=== PATIENT | female | born 1955 | race Caucasian/White ===

== ENCOUNTER 2024-07-06 08:17 | Outpatient (REF) | payer BC, SELFPAY ==
--- NOTE | ~2024-07-06 | XR_ITS ---
CLINICAL HISTORY: M25.849 - Other specified joint disorders, unspecified hand 3 view right wrist Comparison: None Findings: Bones intact. No dislocations. No significant arthritic change or erosions. Dorsal soft tissue swelling with scattered calcifications. IMPRESSION: 1. No acute osseous abnormality. 2. Dorsal soft tissue swelling with scattered calcifications. This document has been electronically signed by: Jerica Betancur MD on 07/06/2024 18:09:33
--- OUTSIDE RECORDS SUMMARY | 2024-07-06 10:26 | XMS_ITS | Clinical Summary ---
Author Organization [facility] Address [address] [place] [address] Care Team Providers Care Aquarium Tank Attendant Name Role Phone Gaby Ruiz MD Primary Care Provider Allergies No known active allergies Medications Medication [...] age to complete this topic Care Teams Aquarium Tank Attendant Relationship Specialty Start Date End Date Gaby Ruiz MD [address] [place] [address] [phone] PCP - General Internal Medicine 10/29/19
[2024-07-06 13:16] LABS: MANUAL DIFF FLAG NO
[2024-07-06 13:28] LABS: Basophils Percent Auto 0.8 % (0-2); Eosinophils Absolute Auto 0.3 X10*3/uL (0.0-0.4); Eosinophils Percent Auto 5.3 % (0-4); Hematocrit 41.6 % (37.0-47.0); Hemoglobin 14.1 g/dl (12.0-16.0); Imm Gran Abs Auto 0.03 X10*3/uL (0.00-0.03); Imm Gran Pct Auto 0.6 % (0.0-0.4); Lymphocytes Absolute Auto 1.2 X10*3/uL (1.2-4.9); Lymphocytes Percent Auto 23.4 % (20-40); Mean Corpuscular HGB Conc 33.9 g/dl (31.0-35.0); Mean Corpuscular Hemoglobin 32.5 pg (27.0-33.0); Mean Corpuscular Volume 95.9 fL (80.0-98.0); Mean Platelet Volume 9.3 fL (9.4-12.3); Monocytes Absolute Auto 0.6 X10*3/uL (0.1-1.2); Monocytes Percent Auto 10.9 % (2-11); Platelet Count 237 X10*3/uL (160-400); Red Blood Count 4.34 X10*6/uL (4.20-5.50); Red Cell Distribution Width 13.7 % (11.0-16.0); White Blood Count 5.1 X10*3/uL (4.8-10.8)
[2024-07-06 14:01] LABS: Alanine Aminotransferase 57 U/L (0-31); Albumin Level 4.2 g/dL (3.5-5.0); Alkaline Phosphatase 75 U/L (39-117); Anion Gap 9 (12-20); Aspartate Amino Transferase 60 U/L (5-31); Blood Urea Nitrogen 10 mg/dL (9-16); Calcium 9.5 mg/dL (8.4-10.2); Carbon Dioxide 26 mmol/L (22-29); Chloride 108 mmol/L (96-108); Cholesterol 135 mg/dL (<200); Estimated Glomerular Filt Rate > 60; Glucose Fasting 91 mg/dL (60-99); HDL Cholesterol 33 mg/dL (>40); LDL Cholesterol Calculated 74 mg/dL (<100); Sodium 139 mmol/L (135-145); Total Protein 8.2 g/dL (6.5-8.0); Triglycerides 144 mg/dL (<150)
[2024-07-06 14:08] LABS: TSH reflex Free T4 2.59 uIU/mL (0.32-4.0); Vitamin D 25-OH Total 31.3 ng/mL (>30)
== END 2024-07-06 08:18 | disposition home or self-care (01) ==
LOC: HO.HMGCX 08:17
PROVIDERS: PCP Internal Medicine; Visit Provider Internal Medicine
DX: Z00.00 Encounter for general adult medical examination without abnormal findings (principal); M25.841 Other specified joint disorders, right hand; N63.0 Unspecified lump in unspecified breast; R26.89 Other abnormalities of gait and mobility; Z78.0 Asymptomatic menopausal state; Z28.21 Immunization not carried out because of patient refusal
CPT/HCPCS: 36415; 73110; 80053; 80061; 82306; 84443; 85025; 96127

== ENCOUNTER 2024-07-06 08:17 | Outpatient (AMB) | payer BC, SELFPAY ==
--- NOTE | 2024-07-06 08:19 | MHC.PC.OV ---
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 Intake Note: Pt is here today as a New Patient to est care Allergies No Known Allergies Allergy (Unverified 07/06/24 08:24) Medication List - Last Reconciled 07/06/24 by Bel Cook MD cholecalciferol (vitamin D3) 50 mcg PO DAILY Tobacco use date assessed: 07/06/24 Fall risk assessment: No Falls in past year Last assessed Fall Risk: 07/06/24 Dental Screening Dental Screen Date: 07/06/24 Did you have a dental visit in the last 12 months?: Yes Did you have a dental problem in the last 6 months where you did not have access to dental care?: Yes Was dental information given to patient?: Patient has dentist HPI 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 Patient noticed a tender lump on her right breast 2 months ago which has not changed. She denies any change in the nipple. Last mammogram was over 2 years ago at [facility]. Patient reports some difficulty with the balance since her right hip replacement surgery 3 years ago which has been preventing her from regular walking. She denies any weakness or pain in the right lower extremity. Patient complains of the painful swelling on the right wrist for 3 months. 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 1. Little interest or pleasure in doing things: not at all 2. Feeling down, depressed, or hopeless: not at all 3. Trouble falling or staying asleep, or sleeping too much: not at all 4. Feeling tired or having little energy: not at all 5. Poor appetite or overeating: not at all 6. Feeling bad about yourself - or that you are a failure or have let yourself or your family down: not at all 7. Trouble concentrating on things, such as reading the newspaper or watching television: not at all 8. Moving or speaking so slowly that other people could have noticed. Or the opposite - being so fidgety or restless that you have been moving around a lot more than usual: not at all 9. Thoughts that you would be better off or of hurting yourself in some way: not at all Total score: 0 Depression Screening Interpretation: Negative Depression Screening Done: Yes 24385 - PHQ-9 Billing: Yes Source: Developed by Drs. Te Mcclain, Carina Park, Ricki Reyes and colleagues, with an educational willie from [employer]. Thrive Questionnaire Date Thrive assessed: 07/06/24 I am a: Patient What is your living situation today?: I have a steady place to live Within the past 12 months, did the food you bought not last and you didn't have the money to get more?: Never true Within the past 12 months, did you worry whether your food would run out before you got money to buy more?: Never true Do you have trouble paying for medicines?: No Do you have trouble getting transportation to medical appointments?: No Do you have trouble paying your heating and electricity bill?: No Do you have trouble taking care of your child, family member or friend?: No Do you have trouble with day-to-day activities such as bathing, preparing meals, shopping, managing finances, etc.?: No Are you currently unemployed and looking for a job?: No Are you interested in more education?: No THRIVE Score: 0 AUDIT C Alcohol Use Questionnaire (AUDIT-C) 1. How often do you have a drink containing alcohol?: Never Total Score: 0 YURI-7 AMB Questionnaire YURI-7 Date YURI - 7 assessed: 07/06/24 Feeling nervous, anxious, or on edge: 0 = Not at all Not being able to stop or control worryin = Several days Worrying too much about different things: 1 = Several days Trouble relaxin = Not at all Being so restless that it is hard to sit still: 0 = Not at all Becoming easily annoyed or irritable: 0 = Not at all Feeling afraid as if something awful might happen: 0 = Not at all Total YURI-7 score (0-4 normal; 5-9 mild; 10-14 moderate; 15-21 severe): 2 Source: Developed by Drs. Te Mcclain, Carina Park, Ricki Reyes and colleagues, with an educational willie from [employer]. Review of Systems Const All systems reviewed & are unremarkable except as noted in HPI and below Eyes Reports no additional complaints ENT Reports no additional complaints Card Reports no additional complaints Resp Reports no additional complaints GI Reports no additional complaints Reports no additional complaints Musc Reports no additional complaints Skin/Breast Reports system reviewed and no additional complaints, except as documented Physical exam (Primary Care) Vital Signs: Last Vital Signs Temp 98.1 F 07/06/24 08:22 Pulse 77 07/06/24 08:22 Resp 16 07/06/24 08:22 BP 124/80 07/06/24 08:22 Pulse Ox 95 07/06/24 08:22 Oxygen Delivery Method Room Air 07/06/24 08:22 BMI result Body Mass Index 38.5 Tobacco/Smoking Status: Tobacco use Status Tobacco use date assessed 07/06/24 07/06/24 08:27 Patient Tobacco Use Status Never used Tobacco 07/06/24 08:27 e-Cigarette/Vaping Use Never Used 07/06/24 08:27 PHQ-9: PHQ-9 Score PHQ-9: Total score 0 07/06/24 08:27 Depression Screening Interpretation: Negative Thrive Assessment: Date of Thrive Assessment Date Thrive assessed 07/06/24 07/06/24 08:27 Const General: no acute distress HENMT Head: Yes normal to inspection Ears: hearing grossly normal bilaterally Face and sinus: Yes normal facial exam Mouth: Normal oral and palatal mucosa present Eyes General: appearance normal, both eyes and all related structures Neck Neck: Yes no lymphadenopathy and Yes supple Chest Breast/axilla inspection: normal inspection of the breasts and normal inspection of the axillae Breast/axilla palpation: normal palpation of the breasts (Left), normal palpation of the axillae and abnormal palpation of the breast (Right breast at 11:00 density palpable without distinct borders) Resp Effort & Inspection: normal respiratory effort Auscultation: clear to auscultation bilaterally Cardio Rhythm: regular rhythm Heart sounds: S1 normal heart sound present and S2 normal heart sound present GI Inspection: Yes normal to inspection Palpation (GI): Soft to palpation Percussion: Yes normal to percussion Auscultation: normal bowel sounds Neuro Cranial nerves: Yes CN's II-XII intact bilaterally Motor exam (neuro): 5/5 motor strength present throughout Romberg Test: Negative Extrem Other: Right wrist with a full range of motion. there is soft tissue ill-defined swelling 5 by 2 cm on the dorsum of right wrist General: Yes no clubbing, cyanosis or edema Coding Level of Care Code New Pt Prev Care >65yr (46200) Diagnoses Hx of colonoscopy Z98.890 Hx of screening mammography Z92. Cyst of joint of hand M25.849 Postmenopausal Z78.0 Breast lump in upper outer quadrant N63.0 Annual physical exam Z00.00 Additional Codes PHQ-9 - 89675 - PHQ-9 Billing: Yes ([id number]) Assessment & Plan Assessment & Plan (1) Hx of colonoscopy: Comment: 2018 normal, [facility] Code(s): Z98.890 - Other specified postprocedural states Category: Surgical Plan: Patient will obtain the report (2) Hx of screening mammography: Comment: 2021? [facility] Code(s): Z92.89 - Personal history of other medical treatment Category: Medical Plan: Referred for the mammogram (3) Cyst of joint of hand: Comment: Right Code(s): M25.849 - Other specified joint disorders, unspecified hand Category: Medical Plan: Check x-ray of right wrist and referred to a hand surgeon (4) Postmenopausal: Code(s): Z78.0 - Asymptomatic menopausal state Category: Medical Plan: Check DEXA (5) Breast lump in upper outer quadrant: Code(s): N63.0 - Unspecified lump in unspecified breast Category: Medical Plan: OBTAIN MAMMOGRAM (6) Annual physical exam: Comment: pt refuses Pnemovax 06/2024 Code(s): Z00.00 - Encounter for general adult medical examination without abnormal findings Category: Medical Plan: Well-balanced diet regular physical activity decreasing caloric intake and weight loss discussed with the patient. She will have a fasting blood work today Orders: Orders Comprehensive [place]. Panel Fast Today R26.89 - Other abnormalities of gait and mobility, Z00.00 - Encounter for general adult medical examination without abnormal findings Vitamin D 25-OH Total Today R26.89 - Other abnormalities of gait and mobility, Z00.00 - Encounter for general adult medical examination without abnormal findings XR wrist RT 2V Today M25.849 - Other specified joint disorders, unspecified hand XR DEXA axial skeleton Today Z78.0 - Asymptomatic menopausal state Complete Blood Count Auto Diff Today R26.89 - Other abnormalities of gait and mobility, Z00.00 - Encounter for general adult medical examination without abnormal findings Lipid Panel Today R26.89 - Other abnormalities of gait and mobility, Z00.00 - Encounter for general adult medical examination without abnormal findings TSH reflex Free T4 Today R26.89 - Other abnormalities of gait and mobility, Z00.00 - Encounter for general adult medical examination without abnormal findings PT Evaluation and Treatment Today R26.89 - Other abnormalities of gait and mobility MM diagnostic mammo unilat RT Today N63.0 - Unspecified lump in unspecified breast MM screening mammo unilat LT Today Z12.31 - Encounter for screening mammogram for malignant neoplasm of breast US breast RT limited Today N63.0 - Unspecified lump in unspecified breast Referrals Hand Surgery Referral M25.849 - Other specified joint disorders, unspecified hand
[2024-07-06 08:22] VITALS: BP 124/80; PULSE 77; RESP 16; TEMP 36.7; O2SAT 95; BMI 38.5
--- OUTSIDE RECORDS SUMMARY | 2024-07-06 08:22 | XMS_ITS ---
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 * Medical History:? Objective: * Vitals:? Assessment: Plan: * Treatment: * Images: * The named appointment provid er may or may not be the originator of this progress note, and it is not deemed complete until electronically signed by the appointment provider. Sign off status: Pending * Provider:?Avery Mtz DPM Date:?2023 Generated for Greer roca/Bela/eTsiddharthsmitting on:?07/06/2024 08:22 AM EDT
--- OUTSIDE RECORDS SUMMARY | 2024-07-06 08:22 | XMS_ITS ---
[facility] Address [address] [place] [address] Care Team Providers Care Assistant Pressman Name Role Phone Ble Cook MD Primary Care Provider Angie Pineda Unavailable [phone] Allergies Allergen (clinical drug ingredient) Drug/Non Drug Allergy documented on EMR Reaction Allergy Type Onset Date Status Pollen Pollen Unknown Allergy Active REASON FOR VISIT Heel pain Medications Medication SIG (Take, Route, Frequency, Duration) Notes Start Date End Date Status Naproxen PRN Active Social History Tobacco Use: Social History Observation Description Date Details (start date - stop date) Never Smoker NA - NA Tobacco Use/Smoking Question Answer Notes Are you a: nonsmoker Additional Findings: Tobacco Non-User Current no n-smoker Alcohol Screen Question Answer Notes Did you have a drink containing alcohol in the p ast year? No Points 0 Interpretation Negative Tobacco use other than smoking: Question Answer Notes Are you an other tobacco user? 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 [address] 02/20/2024 Angie Gloria Achilles tendinitis of right lower extremity M76.61 ; Pain of right heel M79.671 ; Exostosis of right posterior calcaneus M77.31 ; Acquired Sunita's deformity of right heel M92.61 and Short Achilles tendon (acquired), right ankle M67.01 Assessments Encounter Date Diagnosis (ICD Code) Assessment Notes Treatment Notes Treatment Clinical Notes Section Notes 02/20/2024 Achilles tendinitis of right lower extremity (ICD-10 - M76.61) Patient Educated with: HEEL CORD STRETCHES.pdf (HEEL CORD STRETCHES.pdf) Patient Educated with: RICE THERAPY.pdf (RICE THERAPY.pdf) 02/20/2024 Pain of right heel (ICD-10 - M79.671) 02/20/2024 Exostosis of right posterior calcaneus (ICD-10 - M77.31) 02/20/2024 Acquired Sunita's deformity of right heel (ICD-10 - M92.61) 02/20/2024 Short Achilles tendon (acquired), right ankle (ICD-10 - M67.01) Plan Of Treatment Treatment Notes Assessment Notes Achilles tendinitis of right lower extre mity Patient Educated with: HEEL CORD STRETCHES.pdf (HEEL CORD STRETCHES.pdf) Patient Educated with: RICE THERAPY.pdf (RICE THERAPY.pdf) Pending Test Test Name Order Date X ray : Foot, right 3V 02/20/2024 Next Appt Details Follow Up: prn, Reason: Progress Notes * Dez BELCHEROB:1955 (68 yo F)Acc No.[id number]:02/20/2024 Progress Notes Patient:?Deann BELCHER Provider:?Angie Gloria DPM :1955???Age:68 Y???Sex:Female D ate:02/20/2024 Address:[address] [place] [address] Pcp:Bel Cook MD Subjective: * Chief Complaints: * ???Heel pain * HPI: ???Heel pain:?Nature:?aching, tenderness.?Location:?Back of heel, RIGHT.?Duration:?, more than six months.?Onset/Cause:?trauma [ twisted ankle].?Course:?improved.?Aggravated:?standing, walking, walking first thing in the morning/after rest.?Treatments:?rest/alter normal daily activity, custom orthoses.? * ROS:?General/Constitutional:?Nausea?denies.?Vomiting?denies.?Hunger Thirst?denies.?Loss appetite?denies.?Chills?denies.?Fatigue?admits.?Fever?denies.?Night Sweats?denies.?Unexplained weight loss?denies.?Unexplained weight gain?denies.?HEENTM:?Dentures?denies.?Dizziness?denies.?Glasses/contacts?admits.?Retinopathy?de nies.?Blurred/double vision?denies.?TMJ?denies.?Discharge/drainage?denies.?Implants?denies.?Sore throat?denies.?Dental implants?denies.?Hard of hearing ?denies.?Difficulty chewing/swallowing/speaking?denies.?Nose bleeds?denies.?Sore mouth?denies.?Respiratory:?On Oxygen?denies.?Pneumonia/pleurisy?denies.?Bronchitis?denies.?Emphysema?denies.?C oughing?admits.?Cough blood?denies.?Shortness of breath?denies.?Wheezing?denies.?Cardiovascular:?Pacemaker?denies.?MVP?denies.?WPW?denies.?CHF?denies.?Heart attack?denies.?Septal defect?denies.?Rapid beat?denies.?Chest pain ?denies.?Atrial Fib.?denies.?Murmur/Palpitations?denies.?Gastrointestinal:?Hemorrhoids?denies.?Stomach/Abdominal pain?denies.?Dark blood stool?denies.?Irritable bowel ?denies.?Constipation?denies.?Diarrhea?denies.?Hematology:?Swelling?denies.?Clots?denies.?Varicose Veins?denies.?Bruising?denies.?Bleeding problem?denies.?Genitourinary:?Blood urine?denies.?Frequent/Painfu/urination/bladder control?denies.?Kidney stones?denies.?Infection (UTI)?denies.?Nephropathy?denies.?sex trans dis (STD)?denies.?Prostate?denies.?Musculoskeletal:?Hammertoes?denies.?Bunions?denies.?Back Pain?admits.?Muscle Cramps/ Resting?denies.?Muscle cramps / walking?denies.?Generalized aches and pains?denies.?Weakness?denies.?Integ.:?Varma?denies.?Scars?denies.?Corns/calluses?denies.?Ingrown nails?denies.?Painful nails?denies.?Open Sores?denies.?Rashes?denies.?Neurologic:?Difficulty sleeping?denies.?Brain disorder?denies.?Numbness?denies.?Balance trouble?admits.?Confusion?denies.?Fainting/blackouts?denies.?Tingling?denies.?Tr emors?denies.? * Medical History:? * Surgical History:?Gall bladd er removal 1985nose 1969uterus surgery 1990right hip replacement 2021 * Hospitalization/Major Diagno stic Procedure:?No Hospitalization History. * Family History:?Mother: dece ased.?Father: .?Maternal Grand Mother: diabetes, arthritis.?Maternal Grand Father: arthritis.?Maternal aunt: diabetes.? * Social History:?Tobacco Use:?Tobacco Use/Smoking?Are you a:?nonsmoker ?Additional Findings: Tobacco Non-User?Current non-smoker ?Tobacco use other than smoking?Are you an other tobacco user??No ???Drugs/Alcohol:?Drugs?Have you used drugs other than those for medical reasons in the past 12 months??No ?Alcohol Screen?Did you have a drink containing alcohol in the past year??No ?Points?0 ?Interpretation?Negative ???Miscellaneous:?Caffeine: yes. ?Children: yes, 3. ?Exercise: yes, ass sports, games, hiking, swimming, golf. ?Marital status: . 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 * Medications:?TakingNaproxen , Notes to Pharmacist: PRNMedication List reviewed and reconciled with the patientTaking Naproxen , Notes to Pharmacist: PRNMedication List reviewed and reconciled with the patient * Allergies:?Pollenyes[Allergi es Verified] Objective: * Vitals:?Ht: 5 ft 9 in, Wt:25 0, BMI:36.91, Shoe size: 10, Ht-cm: 175.26 cm, Wt- k.4 kg. * Examination: ???General Examination: ?GENERAL APPEARANCE:?Reveals a pleasant, alert, well-nourished, well- developed, well hydrated individual, who demonstrates proper attention to hygiene/body habitus, and is in no acute distress, Pt serves as own?historian for office visit today.?ORIENTED:?person, place, and time.?Neurological: ?SENSORY:?Neurological exam reveals intact sensorium, pain sensation normal, vibration sensation intact, pinprick sensation is normal in the lower extremities, Pt denies, anesthesia, burning, paresthesia, tingling, B/L.?Vascular: ?DP PULSES(B):?3/4, B/L.?PT PULSES(B):?3/4, B/L.?CAPILLARY FILL TIME:?immediate, all digits, B/L.?TROPHIC CONDITION-TEXTURE/ELASTICITY/TURGOR/HAIR GROWTH(B):?normal, B/L.?TEMPERTURE GRADIENT(C):?warm to cool, proximal to distal, B/L.?PIGMENTATION:?normal, B/L.?EDEMA(C):?absent, B/L.?Dermatologic: ?SKIN FINDINGS:?Skin exam reveals normal texture, elasticity, and turgor. There are no masses. The interspaces are clear.?Orthopedic: ?MUSCLE STRENGTH:?5/5 all groups in a symmetrical fashion , B/L.?GAIT ABNORMALITY:?antalgic.?FOOT MORPHOLOGY:? Decreased Ankle joint dorsiflexion ROM, knee extended.?Heel Pain: ?INSPECTION REVEALS:? Pain on palpation to Achilles tendon/bursa with inflammation and swelling present, Pain on palpation to Posterior Superior Aspect Calcaneus, Prominent posterior and posterior/superior heel present, RIGHT.?X-Rays - IMAGING REPORT: ?Clinical Indication(s):? Evaluate for Fracture, Evaluate Biomechanical Deformity.?Views:?3 views of Foot, LAT, LO, MO, RIGHT? ?Taken by trained?Podiatric Laundry Superintendent (?[place] ).?Findings:?normal bone and soft tissue density consistent for patients age and sex, increase in soft tissue contour and density at the symptomatic site, navicular/cuneiform plantar subluxation with anterior cyma line, positive retrocalcaneal exostosis, no coalitions identified, positive infra-calcaneal exostosis.?Fracture:?Negative fractures identified.? Assessment: * Assessment: 1.?Pain of right heel - M79. 671???2.?Achilles tendinitis of right lower extremity - M76.61 (Primary)???Specify :Acute problem, Complicated w/ Multiple Tx Options(4),Dx New problem, Prognosis Uncertain (4)???3.?Exostosis of right posterior calcaneus - M77.31???4.?Acquired Sunita's deformity of right heel - M92.61???5.?Short Achilles tendon (acquired), right ankle - M67.01??? Plan: * Treatment: 2.?Pain of right heel?Imaging: X ray : Foot, right 3V * Procedure Codes:?81596 X-RAY EXAM OF RIGHT FOOT 3V, Modifiers: 26 , RT * Preventive Medicine:? ??Counseling:?Discussion:?-04: Office or other outpatient visit for the evaluation and management of a new patient, which required a medically appropriate history and/or examination and MODERATE level of DECISION MAKING for: 1 OR MORE CHRONIC PROBLEM(S) THATS WORSENING, 2 STABLE CHRONIC PROBLEMS, A NEWLY DIAGNOSED PROBLEM WITH UNCERTAIN PROGNOSIS, AN ACUTE COMPLICATED INJURY WITH MULTIPLE TREATMENT OPTIONS, OR AN ACUTE PROBLEM WITH ACCOMPANYING SYSTEMIC SYMPTOMS, THAT POSE(S) A MODERATE RISK OF MORBIDITY. THIS CONDITION MAY ALSO INCLUDE RX DRUG MANAGEMENT, OR A DECISON FOR MINOR SURGERY. The visit on the day of the encounter encompassed interpreting the data and educating the patient as to the nature of their condition, treatment options available according to their individual PMH, meds, allergies, and overall health/living conditions, as well as any potential risks or complications that may occur from a failure to adhere to, and participate in, the recommended course of therapy. The discussion included a complete verbal, and/or written explanation of the examination results, any x-rays taken, the proposed diagnosis, and outline of the treatment plan. A schedule for future care needs was also explained. The patient verbalized an understanding of the instructions at this time and agreed to be an active participant in their treatment. If the patient should think of any questions or concerns after the visit, I have encouraged the patient to call the office.?Heel pain:?ACHILLES: I explained to the patient the possible etiologies of Achilles Tendonitis including foot type/shoegear/activity level/exercise routine and the risks/benefits of all the different treatment options for pain including: No treatment at all, Rest, Ice, NSAIDs(only if well tolerated after meals), New/supportive Shoegear, Strappings and Tapings, Stretching exercises, Deep Tissue Massage, Heel cups/cushions, Arch support/shoe inserts, Custom orthoses, Topical analgesics including Aspercream/Voltaren gel, Night splint/AFO Bracing for stiffness, Cast boot with crutches/cane/or walker for assisted ambulation, Physical Therapy, EPAT/ESWT, Interfil injection therapy, as well as surgical [place]/Calcanectomy- tendon debridement surgical procedures if needed. Recommendations were made to limit barefoot walking, eliminate wearing nonsupportive shoegear (i.e. flip-flops or sandals, or a shoe with an easily bendable, foldable, or twistable sole) and wear shoegear with a good solid sole, a supportive arch, and plenty of room for an insert/orthotic if necessary. If wearing sandals was required by the patient, we recommended orthopedic sandals such as Orthoheel or Birkenstock even while in the home. If the patient wore heels in the past, we recommended they continue, but eliminate the use of flats. The advantages and disadvantages of each option were discussed and the patients' questions re: shoegear, custom vs prefabricated inserts, activity level, PO vs Topical medications (and their respective potential complications/drug interactions/side effects), and consistency in home treatment regimens for optimal success were answered to their verbally confirmed satisfaction. Literature detailing Achilles Tendonitis and the various treatment options were dispensed and reviewed.?Orthotics:?I explained to the patient the benefits of OT use. I explained that orthoses are medically necessary to decrease the foot pain through proper mechanical control, support of their foot, continue with custom orthotics.?P.R.I.C.E.:?The patient was counseled on the use of P.R.I.C.E. and NSAIDS (if well tolerated) to aid in the recovery from their painful condition.?Shoe Gear Counseling:?The patient and I reviewed the types of shoes they should be wearing. My recommendation included obtaining a well-fitted shoe with a good supportive, non-foldable nor twistable sole, plenty of toe/room for the forefoot, and proper arch support. Based on todays examination, I recommended the patient look for new shoes, by having their feet professionally measured. We discussed that generally the best time of the day for a shoe fitting is the afternoon. Different shoes types and brands to best match the patients occupation and vocation were discussed. Specific brand selection will be up to the patient, their individual foot condition/deformities, and fit. The patient and I reviewed the standard new shoe break in period by wearing them for a few hours a day while checking for redness or sores as wear time is increased. The patient verbally confirmed to understanding the information discussed.?Stretching Exercises:?Stretching and deep tissue massage exercises for the patients injury/diagnosis were discussed and demonstrated, Handouts were also given.?X-rays:?Discussed and reviewed the X-rays with the patient. We discussed how the findings relate to the patients symptoms/complaints. Answered any and all questions..? * Follow Up:?prn * Images: * Sign off status: Completed true * Provider:?Angie Gloria DPM Date:? Generated for Greer roca/Bela/Tracyitting on:?07/06/2024 08:21 AM EDT History and Physical Notes * HPI (History of Present Illness) Category Sub-Category Detail Notes Category Not es Heel pain Duration: , more than six months Nature: aching, tenderness Location: Back of heel, RIGHT Onset/Cause: trauma [ twisted ank le] Aggravated: standing, walking, w alking first thing in the morning/after rest Course: improved Treatments: rest/alter normal da elaine activity, custom orthoses Examination Category Sub-Category Detail Notes Category Not es Heel Pain INSPECTION REVEALS: Pain on palp ation to Achilles tendon/bursa with inflammation and swelling present, Pain on palpation to Posterior Superior Aspect Calcaneus, Prominent posterior and posterior/superior heel present, RIGHT Neurological SENSORY: Neurological exa m reveals intact sensorium, pain sensation normal, vibration sensation intact, pinprick sensation is normal in the lower extremities, Pt denies, anesthesia, burning, paresthesia, tingling, B/L Dermatologic SKIN FINDINGS: Skin exam reveal s normal texture, elasticity, and turgor. There are no masses. The interspaces are clear Orthopedic GAIT ABNORMALITY: antalgic FOOT MORPHOLOGY: Decreased Ankle join t dorsiflexion ROM, knee extended MUSCLE STRENGTH: 5/5 all groups in a symmetrical fashion , B/L General Examination GENERAL APPEARANCE: Reveals a pleasant, alert, well- nourished, well-developed, well hydrated individual, who demonstrates proper attention to hygiene/body habitus, and is in no acute distress, Pt serves as own historian for office visit today ORIENTED: person, place, and t patrick Vascular DP PULSES (B): 3/4, B/L PT PULSES (B): 3/4, B/L CAPILLARY FILL TIME: immediate, all digi ts, B/L TEMPERTURE GRADIENT (C): warm to cool, p roximal to distal, B/L TROPHIC CONDITION-TEXTURE/ELASTICITY/TURGOR/HAIR GROWTH (B): normal, B/L EDEMA (C): absent, B/L PIGMENTATION: normal, B/L X-Rays - IMAGING REPORT Findings: normal b one and soft tissue density consistent for patients age and sex, increase in soft tissue contour and density at the symptomatic site, navicular/cuneiform plantar subluxation with anterior cyma line, positive retrocalcaneal exostosis, no coalitions identified, positive infra-calcaneal exostosis Fracture: Negative fractures i dentified Views: 3 views of Foot, LAT , LO, MO, RIGHT Taken by trained Podiatric Laundry Superintendent ( [place] ) Clinical Indication(s): Evaluate for Fra cture, Evaluate Biomechanical Deformity
--- OUTSIDE RECORDS SUMMARY | 2024-07-06 08:22 | XMS_ITS | Clinical Summary ---
Author Organization [facility] Address [address] [place] [address] Care Team Providers Care Sausage Linker Name Role Phone Gaby Ruiz MD Primary Care Provider [phone] Allergies No known active allergies Medications Medication Sig Dispensed Refills Start Date End Date Status ibuprofen (ADVIL,MOTRIN) 200 MG tablet Take 200 mg by mouth every 6 (six) hours as needed for pain. 0 Active Active Problems Problem Noted Date Diagnosed Date Arthritis of right hip 11/01/2019 Social History Tobacco Use Types Packs/Day Years Used Date Smoking Tobacco: Never Assessed Sex and Gender Information Value Date Recorded Sex Assigned at Not on file Gender Identity Not on file Sexual Orientation Not on file Last Filed Vital Signs Vital Sign Reading Time Taken Comments Blood Pressure - - Pulse - - Temperature - - Respiratory Rate - - Oxygen Saturation - - Inhaled Oxygen Concentration - - Weight 124.7 kg (275 lb) 11/01/2019 9:55 AM EDT Height 175.3 cm (5' 9 ) 11/01/2019 9:55 AM EDT Body Mass Index 40.61 11/01/2019 9:55 AM EDT Plan of Treatment Health Maintenance Due Date Last Done Comments Hepatitis C Screening 1955 COVID-19 Vaccine (#1) 06/11/1954 Depression Screening 1965 BMI Counseling 12/13/1971 Preventative Health Evaluation 12/13/1971 DTap / Tdap / Td (1 - Tdap) 1972 Colon Cancer Screening (Colonoscopy) 1998 Breast Cancer Screening (Mammogram) 12/13/2003 Shingrix-Zoster Vaccine (1 of 2) 12/13/2003 Fall Risk Assessment 2018 Osteoporosis Screening (DEXA Scan) 2018 Pneumococcal Vaccine (1 of 1 - PCV) 2018 Influenza Vaccine (#1) 2023 RSV Adult > 60+ Yrs or Pregn ant (1 - 1-dose 75+ series) 2028 Hepatitis B Vaccines Aged Out No long er eligible based on patient's age to complete this topic RSV Ped < 20 months Aged Out No longe r eligible based on patient's age to complete this topic Care Teams Sausage Linker Relationship Specialty Start Date End Date Gaby Ruiz MD [address] [place] [address] [phone] PCP - General Internal Medicine 10/29/19
--- OUTSIDE RECORDS SUMMARY | 2024-07-06 08:22 | XMS_ITS | Patient Health Record ---
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 Vital Signs Height 5 ft 9 in in 02/20/2024 Weight 250 lbs 02/20/2024 BMI 36.91 kg/m2 02/20/2024 Encounters Encounter Location Date Provider Diagnosis [address] [address] 02/20/2024 Angie Gloria Achilles tendinitis of right lower extremity M76.61 ; Pain of right heel M79.671 ; Exostosis of right posterior calcaneus M77.31 ; Acquired Sunita's deformity of right heel M92.61 and Short Achilles tendon (acquired), right ankle M67.01 [facility] [address] [place] [address] 12/02/2023 Angie Gloria Assessments Encounter Date Diagnosis (ICD Code) Assessment Notes Treatment Notes Treatment Clinical Notes Section Notes 02/20/2024 Pain of right heel (ICD-10 - M79.671) 02/20/2024 Achilles tendinitis of right lower extremity (ICD-10 - M76.61) Patient Educated with: HEEL CORD STRETCHES.pdf (HEEL CORD STRETCHES.pdf) Patient Educated with: RICE THERAPY.pdf (RICE THERAPY.pdf) 02/20/2024 Exostosis of right posterior calcaneus (ICD-10 - M77.31) 02/20/2024 Acquired Sunita's deformity of right heel (ICD-10 - M92.61) 02/20/2024 Short Achilles tendon (acquired), right ankle (ICD-10 - M67.01) Plan Of Treatment Pending Test Test Name Order Date X ray : Foot, right 3V 02/20/2024 Insurance Providers Payer Name Payer Address Payer Phone Subscriber Number Group Number Insured Name Patient Relationship to Insured Coverage Start Date Coverage End Date [facility] [address] [place] [address] [phone] [id number] Deann [place] Self - patient is the insured Medical (General) History Medical History History ICD Code Back,Hip,and Knee pain Cataracts Gall bladder problems Measles Mumps Chicken pox Surgical History Surgery Date(Month/Year) Gall bladder removal 1985 nose 1969 uterus surgery 1990 right hip replacement 2021
--- OUTSIDE RECORDS SUMMARY | 2024-07-06 08:22 | XMS_ITS ---
Author Organization [facility] Address [address] [place] [address] Care Team Providers Care Logistics Analytics Manager Name Role Phone Bel Cook MD Primary Care Provider Angie Pineda [phone] REASON FOR VISIT FACULTY NEUROPSYCHOLOGIST [facility] Entered Encounters Encounter Location Date Provider Diagnosis [facility] [address] [place] [address] 12/02/2023 Angie Gloria Plan Of Treatment No Information Progress Notes * Dez BELCHEROB:1955 (67 yo F)Acc No.[id number]:12/02/2023 Patient:?Deann Belcher :1955???Age:67 Y???Sex:Female Address:[address] [place] [address] [place] [address] * true * Date:? Generated for Printi chanelle/Bela/eTransmitting on:?07/06/2024 08:21 AM EDT
== END 2024-07-06 09:30 | disposition home or self-care (01) ==
PROVIDERS: PCP Internal Medicine; Visit Provider Internal Medicine
DX: Z98.890 Other specified postprocedural states (principal); Z92.89 Personal history of other medical treatment; M25.849 Other specified joint disorders, unspecified hand; Z78.0 Asymptomatic menopausal state; N63.0 Unspecified lump in unspecified breast; Z00.00 Encounter for general adult medical examination without abnormal findings

== ENCOUNTER → 2024-07-06 09:55 | Outpatient (BNV) | payer BC, SELFPAY | PROVIDERS: PCP Internal Medicine; Visit Provider Radiology Diagnostic Radiology | DX: M25.841 Other specified joint disorders, right hand (principal) | CPT/HCPCS: 73110 ==

== ENCOUNTER → 2024-08-08 08:15 | Outpatient (BNV) | payer BC, SELFPAY | PROVIDERS: PCP Internal Medicine; Visit Provider Radiology Diagnostic Radiology | DX: E28.39 Other primary ovarian failure (principal) | CPT/HCPCS: 77080 ==

== ENCOUNTER 2024-08-08 08:24 | Outpatient (REF) | payer BC, SELFPAY ==
--- NOTE | ~2024-08-08 | MM_ITS ---
EXAMINATION: DXA BONE DENSITY AXIAL HISTORY: Z78.0 - Asymptomatic menopausal state TECHNIQUE: [employer] Dual energy absorptiometry (DEXA) of the lumbar spine, total left hip, and femoral neck was performed. COMPARISON: There are no prior studies for comparison. FINDINGS: The bone mineral density of the lumbar spine is 1.253 with a T-score of 0.6, and a Z-score of 1.1. This is indicative of normal bone mineral density. The bone mineral density of the left total hip is 0.999 with a T-score of -0.1, and a Z-score of 0.6. This is indicative of normal bone mineral density. The bone mineral density of the left femoral neck is 0.883 with a T-score of -1.1, and a Z-score of -0.2. This is indicative of osteopenia. MM/XR DEXA axial skeleton IMPRESSION: Based on bone mineral density, and according to World Health Organization (WHO) criteria, the diagnosis is consistent with osteopenia. All bone density values are in grams per centimeter squared (g/cm2). Statistically, 68% of repeat scans fall within 1 SD (+/- 0.010 g/cm2 for AP spine L1-L4) and 1 SD (+/- 0.012 g/cm2 for femur total) FRAX is a trademark of the [employer]'s [place] for Metabolic Bone Disease, a World Health Organization (WHO) Collaborating Center. Electronically signed by: Te Syed MD 08/08/2024 09:46 AM EDT
--- OUTSIDE RECORDS SUMMARY | 2024-08-08 08:36 | XMS_ITS | Clinical Summary ---
Author Organization [facility] Address [address] [place] [address] Care Team Providers Care Machine Feeder Name Role Phone Gaby Ruiz MD Primary Care Provider [phone] Allergies No known active allergies Medications Medication [...] age to complete this topic Care Teams Machine Feeder Relationship Specialty Start Date End Date Gaby Ruiz MD [address] [place] [address] [phone] PCP - General Internal Medicine 10/29/19
--- OUTSIDE RECORDS SUMMARY | 2024-08-08 08:36 | XMS_ITS ---
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 * Surgical History:?Gall bladd er removal 1986nose 1969uterus surgery 1990right hip replacement 2021 * [...] LAT, LO, MO, RIGHT? ?Taken by trained?Podiatric Ribbon Hanking Machine Operator (?[place] ).?Findings:?normal bone and soft tissue density [...] ray : Foot, right 3V * Procedure Codes:?47174 X-RAY EXAM OF RIGHT FOOT 3V, Modifiers: [...] Interfil injection therapy, as well as surgical [place]/Calcanectomy- tendon debridement surgical procedures if needed. Recommendations [...] Provider:?Angie Gloria DPM Date:? Generated for Greer roca/Bela/Vicki on:?08/08/2024 08:36 AM EDT History and Physical Notes * [...] LO, MO, RIGHT Taken by trained Podiatric Ribbon Hanking Machine Operator ( [place] ) Clinical Indication(s): Evaluate for Fra cture, Evaluate Biomechanical Deformity
--- OUTSIDE RECORDS SUMMARY | 2024-08-08 08:36 | XMS_ITS ---
Author Organization [facility] Address [address] [place] [address] Care Team Providers Care Digital Pre Press Operator Name Role Phone Bel Cook MD Primary Care Provider Angie Pineda [phone] REASON FOR VISIT DRUM PRINTER PPWK Entered Encounters Encounter Location Date Provider Diagnosis [facility] [address] [place] [address] 12/02/2023 Angie Gloria Plan Of Treatment No Information Progress Notes * Dez BELCHEROB:1955 (67 yo F)Acc No.[id number]:12/02/2023 Patient:?Deann Belcher :1955???Age:67 Y???Sex:Female Address:[address] [place] [address] [place] [address] * true * Date:? Generated for Printi ng/Fameñog/eTransmitting on:?08/08/2024 08:36 AM EDT
--- OUTSIDE RECORDS SUMMARY | 2024-08-08 08:36 | XMS_ITS ---
Author Organization [facility] Address [address] [place] [address] Care Team Providers Care Diversified Crops Farmworker Name Role Phone Joyce PALACIOS, Bel Primary Care Provider Angie Pineda Unavailable [phone] Avery Mtz Unavailable [phone] Encounters Encounter Location Date Provider Diagnosis [address] [address] 03/09/2024 Avery Mtz Plan Of Treatment No Information Progress Notes * Dez BELCHEROB:1955 (68 yo F)Acc No.[id number]:03/09/2024 Progress Notes Patient:Deann OLSON Provider:?Avery Mtz DPM :1955???Age:68 Y???Sex:Female D ate:03/09/2024 Address:[address] [place], [place] [address] Pcp:Bel Cook MD Subjective: * Chief Complaints: [...] Mtz DPM Date:?2023 Generated for Greer roca/Bela/eTsiddharthsmitting on:?08/08/2024 08:36 AM EDT
--- OUTSIDE RECORDS SUMMARY | 2024-08-08 08:37 | XMS_ITS | Patient Health Record ---
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 ; Acquired Sunita's deformity of right heel M92.61 and Short Achilles tendon (acquired), right ankle M67.01 [facility] [address] [place] [address] 12/02/2023 Angie Gloria Assessments Encounter Date Diagnosis [...] Insured Coverage Start Date Coverage End Date [facility] [address] [place] [address] [phone] [id number] Deann [place] Self - patient is the insured Medical (General) History Medical History History ICD Code Back,Hip,and Knee pain Cataracts Gall bladder problems Measles Mumps Chicken pox Surgical History Surgery Date(Month/Year) Gall bladder removal 1985 nose 1969 uterus surgery 1990 right hip replacement 2021
== END 2024-08-08 08:25 | disposition home or self-care (01) ==
LOC: HO.MAMMO 08:24
PROVIDERS: PCP Internal Medicine; Visit Provider Internal Medicine
DX: Z13.820 Encounter for screening for osteoporosis (principal); Z78.0 Asymptomatic menopausal state
CPT/HCPCS: 77080

== ENCOUNTER 2024-08-15 11:03 | Outpatient (AMB) | payer BC, SELFPAY ==
[2024-08-15 11:22] VITALS: BP 120/76; PULSE 87; RESP 18; TEMP 36.9; O2SAT 95; BMI 38.7
--- NOTE | 2024-08-15 11:22 | A.OFFPC_ITS ---
Vital Signs 08/15/24 11:22 Height 5 ft 9 in Weight 262 lb BMI 38.7 BP 120/76 Blood Pressure Location Lt brachial Position Sitting Respiration 18 Pulse 87 Pulse Source Pulse Oximeter Temp 98.4 F Temp Source Oral Pulse Oximetry (%) 95 Oxygen Delivery Method Room Air Intake Visit Reasons: 1 month follow up Intake Note: Pt is here today for 1 month follow up visit. Allergies No Known Allergies Allergy (Unverified 08/15/24 11:40) Medication List - Last Reconciled 08/15/24 by Bel Cook MD cholecalciferol (vitamin D3) 50 mcg PO DAILY Tobacco use date assessed: 08/15/24 Fall risk assessment: No Falls in past year Last assessed Fall Risk: 08/15/24 Dental Screening Dental Screen Date: 07/06/24 HPI 1 month follow up HPI Details Patient presents for a follow-up. She has started physical therapy for poor balance, history of hip replacement surgery. 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 1. Little interest or pleasure in doing things: not at all 2. Feeling down, depressed, or hopeless: not at all 3. Trouble falling or staying asleep, or sleeping too much: not at all 4. Feeling tired or having little energy: several days 5. Poor appetite or overeating: not at all 6. Feeling bad about yourself - or that you are a failure or have let yourself or your family down: not at all 7. Trouble concentrating on things, such as reading the newspaper or watching television: not at all 8. Moving or speaking so slowly that other people could have noticed. Or the opposite - being so fidgety or restless that you have been moving around a lot more than usual: not at all 9. Thoughts that you would be better off or of hurting yourself in some way: not at all Total score: 1 Depression Screening Interpretation: Negative Depression Screening Done: Yes 51671 - PHQ-9 Billing: Yes Source: Developed by Drs. Te Mcclain, Ricki Hilario and colleagues, with an educational willie from [employer]. Thrive Questionnaire Date Thrive assessed: 08/15/24 I am a: Patient What is your living situation today?: I have a steady place to live Within the past 12 months, did the food you bought not last and you didn't have the money to get more?: Never true Within the past 12 months, did you worry whether your food would run out before you got money to buy more?: Never true Do you have trouble paying for medicines?: No Do you have trouble getting transportation to medical appointments?: No Do you have trouble paying your heating and electricity bill?: No Do you have trouble taking care of your child, family member or friend?: No Do you have trouble with day-to-day activities such as bathing, preparing meals, shopping, managing finances, etc.?: No Are you currently unemployed and looking for a job?: No Are you interested in more education?: I choose not to answer this question Please select the resources that you would like help with: None THRIVE Score: 0 YURI-7 AMB Questionnaire YURI-7 Date YURI - 7 assessed: 07/06/24 Source: Developed by Drs. Te Mcclain, Ricki Hilario and colleagues, with an educational willie from [employer]. Review of Systems Const All systems reviewed & are unremarkable except as noted in HPI and below Eyes Reports no additional complaints ENT Reports no additional complaints Card Reports no additional complaints Resp Reports no additional complaints GI Reports no additional complaints Reports no additional complaints Physical exam (Primary Care) Vital Signs: Last Vital Signs Temp 98.4 F 08/15/24 11:22 Pulse 87 08/15/24 11:22 Resp 18 08/15/24 11:22 BP 120/76 08/15/24 11:22 Pulse Ox 95 08/15/24 11:22 Oxygen Delivery Method Room Air 08/15/24 11:22 BMI result Body Mass Index 38.7 Tobacco/Smoking Status: Tobacco use Status Tobacco use date assessed 08/15/24 08/15/24 11:43 Patient Tobacco Use Status Never used Tobacco 08/15/24 11:24 e-Cigarette/Vaping Use Never Used 08/15/24 11:24 PHQ-9: PHQ-9 Score PHQ-9: Total score 1 08/15/24 12:14 Depression Screening Interpretation: Negative Thrive Assessment: Date of Thrive Assessment Date Thrive assessed 08/15/24 08/15/24 11:24 Const General: no acute distress HENMT Head: Yes normal to inspection Mouth: Normal oral and palatal mucosa present Eyes General: appearance normal, both eyes and all related structures Resp Effort & Inspection: normal respiratory effort Auscultation: clear to auscultation bilaterally Cardio Rhythm: regular rhythm Heart sounds: S1 normal heart sound present and S2 normal heart sound present GI Inspection: Yes normal to inspection Palpation (GI): Soft to palpation Coding Level of Care Code Est Pt Level 3 (88264) Diagnoses Elevated LFTs R79.89 Overweight E66.3 Additional Codes PHQ-9 - 11352 - PHQ-9 Billing: Yes ([id number]) Assessment & Plan Assessment & Plan (1) Elevated LFTs: Code(s): R79.89 - Other specified abnormal findings of blood chemistry Category: Medical Plan: For borderline elevated LFTs patient was advised to avoid simple carbohydrates processed foods increase physical activity and try to lose weight. She repeat LFTs in 2 months if still elevated liver ultrasound will be obtained (2) Overweight: Comment: BMI 38.7 07/2024 Code(s): E66.3 - Overweight Category: Medical Plan: Increasing physical activity decreasing caloric intake weight loss discussed with the patient she will return in 1 year for physical with a fasting labs before Orders: Orders Lipid Panel 1 Year E55.9 - Vitamin D deficiency, unspecified, R79.89 - Other specified abnormal findings of blood chemistry, Z00.00 - Encounter for general adult medical examination without abnormal findings Complete Blood Count Auto Diff 1 Year E55.9 - Vitamin D deficiency, unspecified, R79.89 - Other specified abnormal findings of blood chemistry, Z00.00 - Encounter for general adult medical examination without abnormal findings Comprehensive Mckenzie. Panel Fast 1 Year E55.9 - Vitamin D deficiency, unspecified, R79.89 - Other specified abnormal findings of blood chemistry, Z00.00 - Encounter for general adult medical examination without abnormal findings TSH reflex Free T4 1 Year E55.9 - Vitamin D deficiency, unspecified, R79.89 - Other specified abnormal findings of blood chemistry, Z00.00 - Encounter for general adult medical examination without abnormal findings Vitamin D 25-OH Total 1 Year E55.9 - Vitamin D deficiency, unspecified, R79.89 - Other specified abnormal findings of blood chemistry, Z00.00 - Encounter for general adult medical examination without abnormal findings
--- OUTSIDE RECORDS SUMMARY | 2024-08-15 12:25 | XMS_ITS ---
[facility] Address [address] [place] [address] Care Team Providers Care Director Of Land Name Role Phone Bel Cook MD Primary Care Provider Angie Pineda Unavailable [phone] Allergies Allergen (clinical drug ingredient) Drug/Non Drug [...] 02/20/2024 Encounters Encounter Location Date [facility] [address] 02/20/2024 Angie Gloria Achilles tendinitis of right [...] Notes * Dez BELCHEROB:1955 (68 yo F)Acc No.[id number]:02/20/2024 Progress Notes Patient:?Deann BELCHER Provider:?Angie Gloria DPM :1955???Age:68 Y???Sex:Female D ate:02/20/2024 Address:[address] [place] [address], [facility] Pcp:Bel Cook MD Subjective: * Chief Complaints: [...] LAT, LO, MO, RIGHT? ?Taken by trained?Podiatric Bean Sorter (?[place] ).?Findings:?normal bone and soft tissue density [...] ray : Foot, right 3V * Procedure Codes:?30957 X-RAY EXAM OF RIGHT FOOT 3V, Modifiers: [...] Interfil injection therapy, as well as surgical [place]/Calcanectomy- tendon debridement surgical procedures if needed. Recommendations [...] Gloria DPM Date:? Generated for Greer roca/Bela/Vicki on:?08/15/2024 12:24 PM EDT History and Physical Notes * HPI [...] LO, MO, RIGHT Taken by trained Podiatric Bean Sorter ( [place] ) Clinical Indication(s): Evaluate for Fra cture, Evaluate Biomechanical Deformity
--- OUTSIDE RECORDS SUMMARY | 2024-08-15 12:25 | XMS_ITS | Patient Health Record ---
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 ; Acquired Sunita's deformity of right heel M92.61 and Short Achilles tendon (acquired), right ankle 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
--- OUTSIDE RECORDS SUMMARY | 2024-08-15 12:25 | XMS_ITS ---
Author Organization [facility] Address [address] [place] [address] Care Team Providers Care Steam Table Associate Name Role Phone Bel Cook MD Primary Care Provider Angie Pineda [phone] REASON FOR VISIT LAWYER CRIMINAL PPWK Entered Encounters Encounter Location Date Provider Diagnosis [facility] [address] [place] [address] 12/02/2023 Angie Gloria Plan Of Treatment No Information Progress Notes * Dez BELCHEROB:1955 (67 yo F)Acc No.[id number]:12/02/2023 Patient:?Deann Belcher :1955???Age:67 Y???Sex:Female Address:[address] [place] [address] [place] [address] * true * Date:? Generated for Printi ng/Fameñog/eTransmitting on:?08/15/2024 12:24 PM EDT
--- OUTSIDE RECORDS SUMMARY | 2024-08-15 12:25 | XMS_ITS ---
Author Organization [facility] Address [address] [place] [address] Care Team Providers Care Senior Stock Plan Administrator Name Role Phone Joyce PALACIOS, Bel Primary Care Provider Angie Pineda Unavailable [phone] Avery Mtz Unavailable [phone] Encounters Encounter Location Date Provider Diagnosis [address] [address] 03/09/2024 Avery Mtz Plan Of Treatment No Information Progress Notes * Dez BELCHEROB:1955 (68 yo F)Acc No.[id number]:03/09/2024 Progress Notes Patient:Deann OLSON Provider:?Avery Mtz DPM :1955???Age:68 Y???Sex:Female D ate:03/09/2024 Address:[address] [place], [place] [address] Pcp:Bel Cook MD Subjective: * Chief Complaints: [...] Mtz DPM Date:?2023 Generated for Greer roca/Bela/eTsiddharthsmitting on:?08/15/2024 12:25 PM EDT
--- OUTSIDE RECORDS SUMMARY | 2024-08-15 12:25 | XMS_ITS | Clinical Summary ---
Author Organization [facility] Address [address] [place] [address] Care Team Providers Care Seals Engraver Name Role Phone Gaby Ruiz MD Primary Care Provider [phone] Allergies No known active allergies Medications Medication [...] age to complete this topic Care Teams Seals Engraver Relationship Specialty Start Date End Date Gaby Ruiz MD [address] [place] [phone] PCP - General Internal Medicine 10/29/19
== END 2024-08-15 12:05 | disposition home or self-care (01) ==
LOC: HO.HMCC 11:03
PROVIDERS: PCP Internal Medicine; Visit Provider Internal Medicine
DX: R79.89 Other specified abnormal findings of blood chemistry (principal); E66.3 Overweight

== ENCOUNTER → 2024-08-15 11:03 | Outpatient (BNVA) | payer BC, SELFPAY | PROVIDERS: PCP Internal Medicine; Visit Provider Internal Medicine | DX: E66.3 Overweight (principal); R79.89 Other specified abnormal findings of blood chemistry; E55.9 Vitamin D deficiency, unspecified; Z68.38 Body mass index [BMI] 38.0-38.9, adult | CPT/HCPCS: 96127 ==

== ENCOUNTER 2024-08-27 08:56 | Outpatient (REF) | payer BC, SELFPAY ==
--- NOTE | ~2024-08-27 | US_ITS ---
EXAMINATION: MM DIAGNOSTIC DIGITAL BREAST TOMOSYNTHESIS, BILATERAL Right limited ultrasound. CLINICAL INFORMATION: Right palpable lump low axilla region. COMPARISON: Mammography: Comparison is made with relevant prior exams. TECHNIQUE: Digital breast mammography with tomosynthesis is performed in both the craniocaudal and mediolateral oblique views along with computer-aided detection (CAD). FINDINGS: There are scattered areas of fibroglandular density (ACR BI-RADS breast composition Category b). [place] marker in the upper right breast low axilla without underlying abnormality at site of patient's palpable lump.. There are no significant masses, abnormal calcifications, or other abnormalities. Targeted color Doppler ultrasound scanning in the upper outer quadrant and low axilla demonstrates a normal-appearing axillary lymph node in normal fibroglandular breast tissue. There is no sonographic abnormal findings. Results are provided to the patient at time of visit by the technologist. US/US breast RT limited mamm only IMPRESSION: No mammographic or sonographic abnormal findings to account for the patient's right breast palpable lump. Recommend clinical evaluation and follow-up. Left: Negative. ASSESSMENT: BI-RADS BI-RADS 1 - Negative RECOMMENDATION: 1 year F/U This patient's information was entered into a reminder system with a target due date for their next mammogram. Electronically signed by: Kendra Wills DO 08/27/2024 10:23 AM EDT
--- OUTSIDE RECORDS SUMMARY | 2024-08-27 09:25 | XMS_ITS ---
Author Organization [facility] Address [address] [place] [address] Care Team Providers Care Map Drafter Name Role Phone Joyce PALACIOS, Bel Primary Care Provider Angie Pineda Unavailable [phone] Avery Mtz Unavailable [phone] Encounters Encounter Location Date Provider Diagnosis [address] [address] 03/09/2024 Avery Mtz Plan Of Treatment No Information Progress Notes * Dez BELCHEROB:1955 (68 yo F)Acc No.[id number]:03/09/2024 Progress Notes Patient:Deann OLSON Provider:?Avery Mtz DPM :1955???Age:68 Y???Sex:Female D ate:03/09/2024 Address:[address] [place], [place] [address] Pcp:Bel Cook MD Subjective: * Chief Complaints: [...] Mtz DPM Date:?2023 Generated for Greer roca/Bela/eTsiddharthsmitting on:?08/27/2024 09:24 AM EDT
== END 2024-08-27 08:57 | disposition home or self-care (01) ==
LOC: HO.MAMMO 08:56
PROVIDERS: PCP Internal Medicine; Visit Provider Internal Medicine
DX: N63.11 Unspecified lump in the right breast, upper outer quadrant (principal)
CPT/HCPCS: 76642; 77062; 77066

== ENCOUNTER → 2024-08-27 09:30 | Outpatient (BNV) | payer BC, SELFPAY | PROVIDERS: PCP Internal Medicine; Visit Provider Internal Medicine | DX: N63.31 Unspecified lump in axillary tail of the right breast (principal) | CPT/HCPCS: 76642; 77062; 77066 ==

== ENCOUNTER 2024-08-30 10:43 | Outpatient (REF) | payer BC, SELFPAY ==
--- NOTE | ~2024-08-30 | XR_ITS ---
CLINICAL HISTORY: M79.641 - Pain in right hand Three views of the right hand. COMPARISON: None FINDINGS: Distal radius and ulna appear intact. Atherosclerotic vascular calcifications. Carpals and metacarpals appear intact and normal in alignment. Phalanges appear intact. Interphalangeal joint space narrowing with small osteophytes. No lytic or sclerotic lesion. No periostitis. No radiopaque foreign body. IMPRESSION: 1. No radiographic evidence of acute injury to the right hand. No erosions identified. 2. Degenerative changes of the right hand most pronounced along the interphalangeal joints. This document has been electronically signed by: Sajan Morfin MD on 08/30/2024 15:18:02
--- OUTSIDE RECORDS SUMMARY | 2024-08-30 12:38 | XMS_ITS ---
Author Organization [facility] Address [address] [place] [address] Care Team Providers Care Glazier Stained Glass Name Role Phone Joyce PALACIOS, Bel Primary Care Provider Angie Pineda Unavailable [phone] Avery Mtz Unavailable [phone] Encounters Encounter Location Date Provider Diagnosis [address] [address] 03/09/2024 Avery Mtz Plan Of Treatment No Information Progress Notes * Dez BELCHEROB:1955 (68 yo F)Acc No.[id number]:03/09/2024 Progress Notes Patient:Deann OLSON Provider:?Avery Mtz DPM :1955???Age:68 Y???Sex:Female D ate:03/09/2024 Address:[address] [place], [place] [id number] Pcp:Bel Cook MD Subjective: * Chief Complaints: [...] Mtz DPM Date:?2023 Generated for Greer roca/Bela/eTsiddharthsmitting on:?08/30/2024 12:38 PM EDT
== END 2024-08-30 10:44 | disposition home or self-care (01) ==
LOC: HO.HOSX 10:43
DX: M79.641 Pain in right hand (principal)
CPT/HCPCS: 73130

== ENCOUNTER 2024-08-30 13:31 | Outpatient (AMB) | payer BC, SELFPAY ==
--- NOTE | 2024-08-30 13:58 | A.OFFVIS_ITS ---
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 Patient reports she has a small lump on her dorsum aspect of hand that started to grow in size about 8 months ago. States this is causing her pain and discomfort when bending at the wrist. Right wrist XR done on 07/06/24 IMPRESSION: 1. No acute osseous abnormality. 2. Dorsal soft tissue swelling with scattered calcifications. 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 Patient reports she has a small lump on her dorsum aspect of hand that started to grow in size about 8 months ago. States this is causing her pain and discomfort when bending at the wrist. Right wrist XR done on 07/06/24 IMPRESSION: 1. No acute osseous abnormality. 2. Dorsal soft tissue swelling with scattered calcifications. 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 Neuro: Normal sensation of the tips of all digits of the right hand at this time Vascular: Cap refill brisk Pain: Mild tenderness to palpation about the area of swelling and prominence of the dorsal aspect of the right wrist Pain with extension right wrist ROM: Patient is able to make a closed fist and extend all digits of the right fully Wrist flexion, extension, pronation, supination full and intact, but slightly painful with extension Skin: No lacerations or abrasions. General: No ecchymosis, erythema, or evidence of infection. Psych: Appears grossly normal Affect normal Attitude cooperative Assessment & Plan Assessment & Plan (1) Mass of right wrist: Code(s): R22.31 - Localized swelling, mass and lump, right upper limb Category: Medical Plan 1. Mass of right wrist Patient is educated about this condition Patient is educated about the typical treatment course At this time, I feel it is warranted to get the patient an MRI of her right wrist to assess this mass and determine if further intervention is indicated MRI ordered Patient is amenable to this plan Follow-up after MRI for results review and discussion of further treatment options if indicated, sooner with acute concerns Orders: Orders XR hand RT min 3V Today M79.641 - Pain in right hand MR wrist RT wo con Today R22.31 - Localized swelling, mass and lump, right upper limb Coding Level of Care Code New Pt Level 3 (53146) Diagnoses Mass of right wrist R22.31
[2024-08-30 14:04] VITALS: BMI 38.7
== END 2024-08-30 14:32 | disposition home or self-care (01) ==
LOC: HO.HOS 13:32
PROVIDERS: PCP Internal Medicine
DX: R22.31 Localized swelling, mass and lump, right upper limb (principal)
CPT/HCPCS: 99203

== ENCOUNTER → 2024-08-30 13:34 | Outpatient (BNV) | payer BC, SELFPAY | PROVIDERS: Visit Provider Radiology Diagnostic Radiology | DX: M19.041 Primary osteoarthritis, right hand (principal) | CPT/HCPCS: 73130 ==

== ENCOUNTER 2024-09-05 08:00 | Outpatient (RCR) | payer BC, SELFPAY ==
--- NOTE | 2024-08-13 09:19 | MHC.PT.EP ---
[facility] [place] Office [place] Office [place] Office [address] [phone] F: [phone] F: [phone] F: [phone] F: [phone] Physical Therapy Plan of Care Date of Evaluation: 08/13/24 Date of Surgery: Diagnosis: other abnormalities of gait and mobility Assessment: Patient is a 68 year old R handed female who presents with s/s consistent with other abnormalities of gait and mobility. 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 Patient past medical history includes R ANOOP and anemia. Current impairments include pain, balance, posture, ROM, strength, flexibility, activity tolerance and functional mobility. Functional limitations include decreased ability to walk, go outside, walk properties, and be active with grandkids. Patient is motivated with good rehab potential. Skilled PT will address impairments and functional limitations in order to achieve goals. Frequency and Duration: The patient will be seen 2x/week for 5 weeks Short Term Goals: I with HEP - 2 weeks SLB > 10 seconds b/l - 3 weeks Reciprocal stair negotiation - 3 weeks Shelter Goals: LE strength 4+/5 grossly - 5 weeks LEFS increased by 9 pts - 5 weeks DGI /24 - 5 weeks SLB > 20 seconds b/l - 5 weeks Treatment Plan: Modalities to reduce pain, spasms and effusion. Manual therapy to restore motion and function. Therapeutic exercise to improve strength and flexibility. Neuromuscular re-education for posture and balance. Therapeutic activities to return to functional activities of daily living. Electronically signed by: Dashawn Martins, PT Please sign and return to therapist. Thank you for your referral.
--- NOTE | 2024-10-16 13:14 | MHC.PT.DC ---
[facility] [place] [facility] [place] [facility] [place] [facility] [address] Mike Stern [address] [phone] F: [phone] F: [phone] F: [phone] F: [phone] Physical Therapy Discharge Report Diagnosis: other abnormalities of gait and mobility Date of Surgery: Date of Evaluation: 08/13/24 Date of Discharge: 09/06/24 Treatments to Date: 6 Cancellations to Date: No Shows to Date: Discharge Status: Improved Function Independent with HEP Discharge Summary: 09/05/24: Pt progressed well in skilled PT. issued updated HEP And bands. SLB 20 seconds b/l. Reciprocal stair negotation with subjective reports of R LE being more difficult. DGI . LEFS same as evaluation (56/80). LE strength 4+/5 grossly. Appropriate to d/c to HEP at this time. 08/29/24: pt progressing well overall with skilled PT. I with HEP. we will plan to d/c to HEP NV. 08/23/24: hep issued and updated, bands issued. pt responding well so far. some fatigue and challenge with balance. better performance with loaded lat walking with cones. 08/21/24: tolerating progression well without adverse reactions. continue to add functional balance challenges. 08/16/24: added flex, strength, balance. no adverse reactions. HS stretching and standing hip given as HEP. Patient is a 68 year old R handed female who presents with s/s consistent with other abnormalities of gait and mobility. 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 Patient past medical history includes R ANOOP and anemia. Current impairments include pain, balance, posture, ROM, strength, flexibility, activity tolerance and functional mobility. Functional limitations include decreased ability to walk, go outside, walk properties, and be active with grandkids. Patient is motivated with good rehab potential. Skilled PT will address impairments and functional limitations in order to achieve goals. Electronically signed by: Dashawn Martins, PT Please sign and return to therapist. Thank you for your referral.
== END 2024-10-16 13:14 | disposition home or self-care (01) ==
LOC: HO.PTCHIC 08:00
PROVIDERS: PCP Internal Medicine; Visit Provider Internal Medicine
DX: R26.89 Other abnormalities of gait and mobility (principal)
CPT/HCPCS: 97110; 97112; 97162

== ENCOUNTER → 2024-09-24 08:29 | Outpatient (BNV) | payer BC, SELFPAY | PROVIDERS: Visit Provider Radiology Diagnostic Radiology | DX: R22.31 Localized swelling, mass and lump, right upper limb (principal) | CPT/HCPCS: 73223 ==

== ENCOUNTER 2024-09-24 08:31 | Outpatient (REF) | payer BC, SELFPAY ==
--- NOTE | ~2024-09-24 | MR_ITS ---
EXAM: MRI of the right wrist without and with IV contrast TECHNIQUE: Multiplanar multisequence technique was performed to image an upper extremity joint without and with IV contrast. IV contrast: 10 mL Gadavist. INDICATION: Right wrist mass for over one year, dull pain, constantly PRIOR: X-ray from 02/14/2025 FINDINGS: Triangular fibrocartilage complex: There is a 2 mm perforation through the triangular fibrocartilage disc near the sigmoid notch of radius. Intrinsic wrist ligaments: Scapholunate ligament appears intact. However, there is mildly increased signal lucency sequences in the volar band. Lunotriquetral ligament appears grossly intact. Extensor compartments: There is fluid signal within the tendon sheath of the fourth extensor compartment the distal forearm and more pronounced along the region of the carpal metacarpal joints. There is central stellate fluid signal and thickening of the extensor digitorum tendon for the third digit. There is milder signal changes in the 2nd and 4th digit tendon of the fourth extensor compartment. There is associated hyperenhancement. Extensor compartment are otherwise unremarkable. Flexor tendons: Flexion is intact and unremarkable. Carpal tunnel and Guyon's canal: Carpal tunnel and Guyon's canal structures are unremarkable. Bones/Marrow: There are no marrow replacing lesions. Soft tissues: There is a multiloculated collection that is isointense to skeletal muscle on T1 imaging and hyperintense on fluid status sequences with thin internal septations and very faint enhancement of the septations. It is located volar to the radial styloid, extending proximally from the region of the scaphoid tuberosity, and coursing deep to the radial artery. There is probably very minimal extension dorsal to the distal scaphoid. In greatest dimension, it measures 22 x 8 x 17 mm (CC by AP by transverse). Otherwise, soft tissues are unremarkable. There is no muscle edema, fatty streaking, or atrophy. MR/MR wrist RT wo/w con IMPRESSION: Multiloculated synovial cyst or ganglion situated deep to radial artery and volar to the radial styloid and scaphoid. Tenosynovitis of the fourth extensor compartment with grade 2 strain of the extensor tendon from the third ray and milder changes from extensor tendon of the second and fourth ray. There is a 2 mm perforation through the central disc of triangular fibrocartilage near the sigmoid notch of radius. Age-indeterminate grade 1 sprain of the volar band of scapholunate ligament. Electronically signed by: Hiro Wilcox MD 09/24/2024 12:27 PM EDT
--- OUTSIDE RECORDS SUMMARY | 2024-09-24 08:54 | XMS_ITS | Patient Health Record ---
Author Organization [facility] Address [address] [place] [id number] Care Team Providers Care Audiometric Technician Name Role Phone NONE, NONE Primary Care Provider Te Travis [phone] Reason For Referral No Information Plan Of Treatment No Information
[2024-09-24] MEDS: gadobutroL 10 ML VIAL IVPUSH (09:46)
== END 2024-09-24 08:32 | disposition home or self-care (01) ==
LOC: HO.MRI 08:31
DX: R22.31 Localized swelling, mass and lump, right upper limb (principal)
CPT/HCPCS: 73223; A9585

== ENCOUNTER 2024-10-15 12:03 | Outpatient (REF) | payer BC, SELFPAY ==
--- OUTSIDE RECORDS SUMMARY | 2024-03-09 05:30 | XMS_ITS ---
Author Organization [facility] Address [address] [place] [id number] Care Team Providers Care Dialysis Registered Nurse Name Role Phone Joyce PALACIOS, Bel Primary Care Provider Angie Pineda Unavailable [phone] Avery Mtz Unavailable [phone] Encounters Encounter Location Date Provider Diagnosis [address] [address] 03/09/2024 Avery Mtz Plan Of Treatment No Information Progress Notes * Dez BELCHEROB:1955 (68 yo F)Acc No.[id number]:03/09/2024 Progress Notes Patient: Deann SHARP Provider: Luciano Mtz DPM :1955 A ge:68 Y S ex:Female Date:03/09/2024 Address:[address] [place], [place] [id number] Pcp:Bel Cook MD Subjective: * Chief Complaints: * * Medical History: Objective: * Vitals: Assessment: Plan: * Treatment: * Images: * The named appointment provid er may or may not be the originator of this progress note, and it is not deemed complete until electronically signed by the appointment provider. Sign off status: Pending * Provider: Luciano Mtz DPM Date: 1 05/10/2023 Generated for Printi ng/Faxing/eTransmitting on: 0 10/15/2024 12:59 PM EDT
--- OUTSIDE RECORDS SUMMARY | 2024-10-15 12:59 | XMS_ITS | Clinical Summary ---
Author Organization [facility] Address [address] [place] [address] Care Team Providers Care Wood Coater Name Role Phone Gaby Ruiz MD Primary [...] 1 - PCV) 2018 Influenza Vaccine (#1) 2024 RSV Adult > 60+ Yrs or Pregn ant (1 - 1-dose 75+ series) 2028 Hepatitis B Vaccines Aged Out No long er eligible based on patient's age to complete this topic RSV Ped < 20 months Aged Out No longe r eligible based on patient's age to complete this topic Care Teams Wood Coater Relationship Specialty Start Date End Date Gaby Ruiz MD [address] [place] [phone] PCP - General Internal Medicine 10/29/19
--- OUTSIDE RECORDS SUMMARY | 2024-10-15 12:59 | XMS_ITS | Patient Health Record ---
Author Organization [facility] Address [address] [place] [id number] Care Team Providers Care Social Professionals Name Role Phone NONE, NONE Primary Care Provider Te Travis [phone] Reason For Referral No Information Plan Of Treatment No Information
[2024-10-15 13:54] LABS: Alanine Aminotransferase 84 U/L (0-31); Albumin Level 4.3 g/dL (3.5-5.0); Alkaline Phosphatase 75 U/L (39-117); Aspartate Amino Transferase 69 U/L (5-31); Total Protein 8.2 g/dL (6.5-8.0)
[2024-10-16 08:30] LABS: HBS Num1 0.63 mIU/mL (0-7.99); HBc Num1 0.06 S/CO (0.00-0.79); HBsAGNum1 0.38 S/CO (0.00-0.99); Hepatitis B Surface Antigen Negative (Negative); ~HepC Num1 0.09 S/CO (0.00-0.79); ~Hepatitis B Surface Antibody NONREACTIVE (Nonreactive); ~Hepatitis C Antibody Nonreactive (Nonreactive)
== END 2024-10-15 12:04 | disposition home or self-care (01) ==
LOC: HO.HMGCLDS 12:03
PROVIDERS: PCP Internal Medicine; Visit Provider Internal Medicine
DX: R79.89 Other specified abnormal findings of blood chemistry (principal)
CPT/HCPCS: 36415; 80076; 86704; 86706; 86803; 87340

== ENCOUNTER 2024-10-17 09:05 | Outpatient (AMB) | payer BC, SELFPAY ==
--- OUTSIDE RECORDS SUMMARY | 2024-03-09 05:30 | XMS_ITS ---
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 Name Role Phone Joyce PALACIOS, Bel Primary Care Provider Angie Pineda Unavailable [phone] Avery Mtz Unavailable [phone] Encounters Encounter Location Date Provider Diagnosis [address] [address] 03/09/2024 Avery Mtz Plan Of Treatment No Information Progress Notes * Dez BELCHEROB:1955 (68 yo F)Acc No.[id number]:03/09/2024 Progress Notes Patient: Deann SHARP Provider: Luciano Mtz DPM :1955 A ge:68 Y S ex:Female Date:03/09/2024 Address:[address] [place], [place] [id number] Pcp:Bel Cook MD Subjective: * Chief Complaints: [...] 05/10/2023 Generated for Printi ng/Faxing/eTransmitting on: 0 10/17/2024 09:32 AM EDT
--- OUTSIDE RECORDS SUMMARY | 2024-10-17 09:33 | XMS_ITS | Patient Health Record ---
Author Organization [facility] Address [address] [place] [id number] Care Team Providers Care Hooker Machine Tender Name Role Phone NONE, NONE Primary Care Provider Te Travis [phone] Reason For Referral No Information Plan Of Treatment No Information
--- OUTSIDE RECORDS SUMMARY | 2024-10-17 09:33 | XMS_ITS | Clinical Summary ---
Author Organization [facility] Address [address] [place] [address] Care Team Providers Care Jewelry Sorter Name Role Phone Gaby Ruiz MD Primary [...] age to complete this topic Care Teams Jewelry Sorter Relationship Specialty Start Date End Date Gaby Ruiz MD [address] [place] [phone] PCP - General Internal Medicine 10/29/19
--- NOTE | 2024-10-17 09:43 | MHC.OFFVIS ---
Vital Signs 10/17/24 09:50 Height 5 ft 9 in Weight 262 lb BMI 38.7 Intake Visit Reasons: OV-RT wrist MRI review Intake Note: Deann 68 yr old female presents today for her follow up visit to review her MRI of right hand mass. MR/MR wrist RT wo/w con IMPRESSION: Multiloculated synovial cyst or ganglion situated deep to radial artery and volar to the radial styloid and scaphoid. Tenosynovitis of the fourth extensor compartment with grade 2 strain of the extensor tendon from the third ray and milder changes from extensor tendon of the second and fourth ray. There is a 2 mm perforation through the central disc of triangular fibrocartilage near the sigmoid notch of radius. Age-indeterminate grade 1 sprain of the volar band of scapholunate ligament. Allergies No Known Allergies Allergy (Unverified 10/17/24 09:53) HPI HPI OV-RT wrist MRI review: Details: Deann is a 68 year old right hand dominant woman who presents for an MRI review of her right dorsal wrist painful mass. She complains of pain in the dorsal aspect of the her right wrist, as well as limited ROM. She says she can feel something pulling on the tendons of her hand when she moves her wrist. She reports having a mass on the back of her right wrist for ~1 year now. This has changed in size, she says it continues to widen and increase in size. She denies any numbness or tingling. She denies any hx of Rheumatoid arthritis. 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: House Patient Tobacco Use Status: Never used Tobacco e-Cigarette/Vaping Use: Never Used service: No Current occupational status: employed 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 Cognitive needs: No Hearing needs: No Vision needs: Yes Review of Systems Const All systems reviewed & are unremarkable except as noted in HPI and below Physical Exam Vital Signs: BMI result Body Mass Index 38.7 Const General: cooperative, healthy appearing and no acute distress Orientation/consciousness: patient oriented x3 HEENT Head: Yes normocephalic and Yes atraumatic Eyes EOM: EOMs intact bilaterally Resp Effort & Inspection: normal respiratory effort and able to speak in complete sentences Cardio Jugular venous distension: no JVD Skin General skin exam: turgor normal Rashes: no rashes Neuro General: patient oriented x3 Extrem Other: Evaluation of Right Upper Extremity: The patient is alert, oriented, and in no acute distress Neuro: Median, Ulnar, Radial nerves motor and sensory intact and sensation is normal to the tips of all digits Vascular: Cap refill brisk ROM: She can make a fist and extend all her digits When extending her digits, she feels a pulling pain in the dorsum of her wrist, extending into the dorsal forearm No pain with resisted finger extension She has a fullness over the 4th dorsal compartment tendons, where they pass over the wrist joint, from the radiocarpal joint to the CMC joints Mild tenderness No symptoms or tenderness about base of thumb Skin: No lacerations or abrasions. General: No Ecchymosis. No Erythema or evidence of infection. Radiographs: 3 views of the right hand from 08/30/24 were reviewed by me today in clinic. They show no fractures or dislocations. MR/MR wrist RT wo/w con FINDINGS: Triangular fibrocartilage complex: There is a 2 mm perforation through the triangular fibrocartilage disc near the sigmoid notch of radius. Intrinsic wrist ligaments: Scapholunate ligament appears intact. However, there is mildly increased signal lucency sequences in the volar band. Lunotriquetral ligament appears grossly intact. Extensor compartments: There is fluid signal within the tendon sheath of the fourth extensor compartment the distal forearm and more pronounced along the region of the carpal metacarpal joints. There is central stellate fluid signal and thickening of the extensor digitorum tendon for the third digit. There is milder signal changes in the 2nd and 4th digit tendon of the fourth extensor compartment. There is associated hyperenhancement. Extensor compartment are otherwise unremarkable. Flexor tendons: Flexion is intact and unremarkable. Carpal tunnel and Guyon's canal: Carpal tunnel and Guyon's canal structures are unremarkable. Bones/Marrow: There are no marrow replacing lesions. Soft tissues: There is a multiloculated collection that is isointense to skeletal muscle on T1 imaging and hyperintense on fluid status sequences with thin internal septations and very faint enhancement of the septations. It is located volar to the radial styloid, extending proximally from the region of the scaphoid tuberosity, and coursing deep to the radial artery. There is probably very minimal extension dorsal to the distal scaphoid. In greatest dimension, it measures 22 x 8 x 17 mm (CC by AP by transverse). Otherwise, soft tissues are unremarkable. There is no muscle edema, fatty streaking, or atrophy. IMPRESSION: Multiloculated synovial cyst or ganglion situated deep to radial artery and volar to the radial styloid and scaphoid. Tenosynovitis of the fourth extensor compartment with grade 2 strain of the extensor tendon from the third ray and milder changes from extensor tendon of the second and fourth ray. There is a 2 mm perforation through the central disc of triangular fibrocartilage near the sigmoid notch of radius. Age-indeterminate grade 1 sprain of the volar band of scapholunate ligament. Electronically signed by: Hiro Wilcox MD 09/24/2024 Psych Appearance: grossly normal Affect: normal affect Attitude: cooperative Assessment & Plan Assessment & Plan (1) Tenosynovitis of right hand: Code(s): M65.941 - Unspecified synovitis and tenosynovitis, right hand Category: Medical Plan Assessment & Plan: 1. Right 4th dorsal compartment extensor tenosynovitis Onset ~1 year ago Etiology unclear I educated her about this condition I discussed operative and non-operative treatment options. She we will likely benefit from a tenosynovectomy The patient is not interested in surgery at this time as she is busy during the summer months. I recommend she follow up at a later date to discuss treatment options We did talk about possible risks of tendon rupture with persistent tenosynovitis She should continue her daily activities as tolerated She will follow up in 2 months to see how she is doing. if her symptoms persist or worsen we may consider signing her up for a tenosynovectomy of the 4th dorsal compartment. This should be a 30 minute appointment Scribed for Elke Lechuga MD by Hesham Dumont, medical doctor md/medical director, on 10/17/24 at 10:00 AM, EST. Coding Level of Care Code Est Pt Level 4 (72096) Diagnoses Tenosynovitis of right hand M65.941
[2024-10-17 09:50] VITALS: BMI 38.7
== END 2024-10-17 10:20 | disposition home or self-care (01) ==
LOC: HO.HOS 09:05
PROVIDERS: Visit Provider Orthopaedic Surgery
DX: M65.941 Unspecified synovitis and tenosynovitis, right hand (principal)
CPT/HCPCS: 99214

== ENCOUNTER 2024-11-10 10:23 | Outpatient (REF) | payer BC, SELFPAY ==
--- NOTE | ~2024-11-10 | XR_ITS ---
CLINICAL HISTORY: M79.644 - Pain in right finger(s) --- Additional Notes or Special Instructions: Pain R 3rd DIP joint 3 view right hand Comparison: DX - XR HAND RT MIN 3V - 08/30/24 13:34 EDT Findings: No acute fracture or dislocation is identified. There is joint space narrowing at the DIP joints and radiocarpal joint. Small soft tissue calcifications are seen in the dorsal hand and wrist. IMPRESSION: 1. No acute osseous abnormality is identified. 2. Mild degenerative changes in the right hand. This document has been electronically signed by: Daria Woodruff on 11/10/2024 11:59:59
== END 2024-11-10 10:24 | disposition home or self-care (01) ==
LOC: HO.HMGCX 10:23
PROVIDERS: PCP Internal Medicine; Visit Provider Family Medicine
DX: M79.644 Pain in right finger(s) (principal)
CPT/HCPCS: 73130

== ENCOUNTER 2024-11-10 10:23 | Outpatient (AMB) | payer BC, SELFPAY ==
[2024-11-10 10:23] VITALS: BP 124/80; PULSE 90; RESP 15; TEMP 36.8; O2SAT 98; BMI 39.4
--- NOTE | 2024-11-10 10:23 | AM.OFFWIN_ITS ---
Intake Vital Signs 11/10/24 10:23 Height 5 ft 9 in Weight 267 lb BMI 39.4 BP 124/80 Blood Pressure Location Lt brachial Position Sitting Respiration 15 Pulse 90 Pulse Source Pulse Oximeter Temp 98.2 F Temp Source Oral Pulse Oximetry (%) 98 Oxygen Delivery Method Room Air Intake Visit Reasons: EP RT hand/middle finger injury Intake Note: Pt is here today c/o Rt hand middle finger pain since Patient Tobacco Use Status: Never used Tobacco Allergies No Known Allergies Allergy (Unverified 11/10/24 10:31) Medication List - Last Reconciled 11/10/24 by John Aleman MD cholecalciferol (vitamin D3) 50 mcg PO DAILY HPI EP RT hand/middle finger injury HPI Details Patient with history of tenosynovitis of right hand presents with pain at right distal 3rd finger after feeling a snapping sensation while bending her fingers. No other trauma Still has normal range of motion but patient says it is tender to the touch. 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: House Patient Tobacco Use Status: Never used Tobacco e-Cigarette/Vaping Use: Never Used service: No Current occupational status: employed 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 Cognitive needs: No Hearing needs: No Vision needs: Yes Review of Systems Const Denies chills, Denies fatigue, Denies fever(s), Denies headache(s) and Denies weakness ENT Denies dizziness and Denies headache(s) Card Denies dyspnea Resp Denies cough, Denies dyspnea, Denies wheezing and Denies other ( shortness of breath) Musc Details: Pain at right 3rd finger-see HPI Denies numbness and Denies tingling Neuro Denies dizziness, Denies headache(s), Denies numbness, Denies tingling, Denies paresthesias and Denies weakness Psych Denies anxiety and Denies depression Endo Denies fatigue Aller/Immun Denies wheezing Physical Exam Vital Signs: Last Vital Signs Temp 98.2 F 11/10/24 10:23 Pulse 90 11/10/24 10:23 Resp 15 11/10/24 10:23 BP 124/80 11/10/24 10:23 Pulse Ox 98 11/10/24 10:23 Oxygen Delivery Method Room Air 11/10/24 10:23 BMI result Body Mass Index 39.4 Const General: no acute distress and well developed Nutritional Appearance: well nourished Orientation/consciousness: patient oriented x3 HEENT Head: Yes normocephalic and Yes atraumatic Eyes General: appearance normal, both eyes and all related structures Pupils: Equal, round and reactive pupils present EOM: EOMs intact bilaterally Resp Effort & Inspection: normal respiratory effort Neuro General: patient oriented x3 and gait normal Cranial nerves: Yes Equal, round and reactive pupils present Extrem Other: Tenderness at dip joint of right 3rd finger. No erythema or swelling No deformity palpated Normal range of motion Normal sensation and circulation Psych Affect: normal affect Assessment & Plan Assessment & Plan (1) Pain in finger of right hand: Code(s): M79.644 - Pain in right finger(s) Plan: Pain at dip joint of right 3rd finger No significant swelling and no deformity palpated though she does have mild tenderness with palpation. X-ray is negative for fracture or avulsion Likely has tendinitis of right 3rd finger Advised cold packs and elevation as well as ibuprofen She is seen by the hand surgeon for tenosynovitis and has follow-up for that in November. Orders: Orders XR hand RT min 3V Today M79.644 - Pain in right finger(s) Coding Level of Care Code Est Pt Level 3 (73082) Diagnoses Pain in finger of right hand M79.644
== END 2024-11-10 11:57 | disposition home or self-care (01) ==
PROVIDERS: PCP Internal Medicine; Visit Provider Family Medicine
DX: M79.644 Pain in right finger(s) (principal)

== ENCOUNTER → 2024-11-10 11:05 | Outpatient (BNV) | payer BC, SELFPAY | PROVIDERS: PCP Internal Medicine; Visit Provider Radiology Vascular & Interventional Radiology | DX: M19.041 Primary osteoarthritis, right hand (principal) | CPT/HCPCS: 73130 ==

== ENCOUNTER 2024-11-16 07:34 | Outpatient (AMB) | payer BC, SELFPAY ==
--- OUTSIDE RECORDS SUMMARY | 2024-03-09 05:30 | XMS_ITS ---
Author Organization [facility] Address [address] [place] [phone] Care Team Providers Care Glass Grinder Name Role Phone Joyce PALACIOS, Bel Primary Care Provider Angie Pineda Unavailable [phone] Avery Mtz Unavailable [phone] Encounters Encounter Location Date Provider Diagnosis [address] [address] 03/09/2024 Avery Mtz Plan Of Treatment No Information Progress Notes * Dez BELCHEROB:1955 (68 yo F)Acc No.[id number]:03/09/2024 Progress Notes Patient: Deann SHARP Provider: Luciano Mtz DPM :1955 A ge:68 Y S ex:Female Date:03/09/2024 Address:[address] [place], [place] [id number] Pcp:Bel Cook MD Subjective: * Chief Complaints: [...] DPM Date: 1 05/10/2023 Generated for Printi ng/Fameñog/eTransmitting on: 0 11/16/2024 07:36 AM EDT
[2024-11-16 07:34] VITALS: BP 130/80; PULSE 67; RESP 17; TEMP 36.5; O2SAT 98; BMI 39.6
--- NOTE | 2024-11-16 07:34 | MHC.OFFWIV ---
Intake Vital Signs 11/16/24 07:34 Height 5 ft 9 in Weight 268 lb BMI 39.6 BP 130/80 Blood Pressure Location Lt brachial Position Sitting Respiration 17 Pulse 67 Pulse Source Pulse Oximeter Temp 97.7 F Temp Source Oral Pulse Oximetry (%) 98 Oxygen Delivery Method Room Air Intake Visit Reasons: EP-rt had mid finger pain Intake Note: Pt is here today c/o Rt Rt hand middle finger x1week ago still in pain Patient Tobacco Use Status: Never used Tobacco Allergies No Known Allergies Allergy (Unverified 11/16/24 07:37) HPI HPI Comments History of Present Illness Details History of Present Illness - The patient is a 68-year-old female presenting with severe pain in the right middle finger. - The issue began approximately a week ago with a snapping sensation in the finger, followed by excruciating pain. - The pain has been progressively worsening, impacting sleep and daily activities. - The patient has been using ice packs and soaking the hand to alleviate pain, with limited relief. - The pain radiates into the middle finger, which is tender to pressure but not passive movement. - The patient has a history of tenosynovitis, with prior MRI and x-ray showing no significant findings. - Recently switched from naproxen to meloxicam for pain management. - She denies numbness, tingling, swelling, redness, or warmth. Physical Exam General: Cooperative, healthy appearing, comfortable, no acute distress and well developed Respiratory: Normal respiratory effort and able to speak in complete sentences. Clear to auscultation bilaterally Cardiovascular: Regular rate and rhythm. Normal S1 and S2 Skin: No rashes or lesions noted. No erythema noted. Neuro: Sensation intact. Extremities: Normal to inspection. FROM of the right arm. FROM of the right elbow and wrist. FROM of the fingers on the right. Flexion and extension of the right middle finger. Negative Tinel's noted. Hand world designer is strong and intact. Patient was informed and verbally consented to the use of an ambient scribe for clinic note documentation during this visit. 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 Housing: House Patient Tobacco Use Status: Never used Tobacco e-Cigarette/Vaping Use: Never Used service: No Current occupational status: employed 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 Cognitive needs: No Hearing needs: No Vision needs: Yes Review of Systems Const All systems reviewed & are unremarkable except as noted in HPI and below Physical Exam Vital Signs: Last Vital Signs Temp 97.7 F 11/16/24 07:34 Pulse 67 11/16/24 07:34 Resp 17 11/16/24 07:34 BP 130/80 11/16/24 07:34 Pulse Ox 98 11/16/24 07:34 Oxygen Delivery Method Room Air 11/16/24 07:34 BMI result Body Mass Index 39.6 Assessment & Plan Assessment & Plan (1) Pain of right middle finger: Code(s): M79.644 - Pain in right finger(s) Plan Most likely tenosynovitis vs tendonitis vs strain vs neuropathy Plan - Reviewed x-ray from last visit - Continue with meloxicam for pain management, as prescribed. - Follow up with hand specialist for further evaluation and management of tenosynovitis - Consideration of a finger splint to immobilize the affected finger and reduce pain. Coding Level of Care Code Est Pt Level 3 (22152) Diagnoses Pain of right middle finger M79.644
--- OUTSIDE RECORDS SUMMARY | 2024-11-16 07:36 | XMS_ITS | Patient Health Record ---
Author Organization [facility] Address [address] [place] [id number] Care Team Providers Care Color Separation Photographer Name Role Phone NONE, NONE Primary Care Provider Te Travis [phone] Reason For Referral No Information Plan Of Treatment No Information
--- OUTSIDE RECORDS SUMMARY | 2024-11-16 07:36 | XMS_ITS | Clinical Summary ---
Author Organization [facility] Address [address] [place] [address] Care Team Providers Care Religious Education Teacher Name Role Phone Gaby Ruiz MD Primary [...] age to complete this topic Care Teams Religious Education Teacher Relationship Specialty Start Date End Date Gaby Ruiz MD [address] [place] [phone] PCP - General Internal Medicine 10/29/19
== END 2024-11-16 08:06 | disposition home or self-care (01) ==
PROVIDERS: PCP Internal Medicine; Visit Provider Physician Assistant Medical
DX: M79.644 Pain in right finger(s) (principal)

== ENCOUNTER 2024-12-18 09:56 | Outpatient (AMB) | payer BC, SELFPAY ==
--- NOTE | 2024-12-18 09:57 | MHC.OFFVIS ---
Vital Signs 12/18/24 10:47 Height 5 ft 9 in Weight 265 lb BMI 39.1 Handedness Right Intake Visit Reasons: OV-RT wrist/RT MF worsening pain Intake Note: Deann is a 69 year old right hand dominant woman who presents today for a follow up visit for her tenosynovitis of right hand. At her last visit in office in September patient was not interested in surgery at this time as she is busy during the summer months. Today she has complaint of increase pain in her right hand 3rd digit .Since her last visit she also expresses her right middle finger blew out. She says she was pulling on something and felt a snap in her finger. After this the entire medical aspect of her right hand middle finger had pain that eventually started radiating into the right index finger and then eventually into the wrist she says. Pain increased with ROM of fingers however she does expresses after a few acupuncture visits it mildly improved. She says she has tenderness with palpation in the right middle finger and daily numbnesses. She was prescibed 20 tablets of meloxicam which she says never gave her relief. She would like to discuss surgery but is unaware if this is a new problem or if it relates to her past complaint. Allergies No Known Allergies Allergy (Unverified 12/18/24 10:52) HPI HPI OV-RT wrist/RT MF worsening pain: Details: Deann is a 69 year old right hand dominant woman who returns with a new complaint of right middle finger pain. She says she was doing heavy pulling of an object when she felt a painful popping sensation in the ulnar aspect of her right middle finger D IP joint which radiated up the ulnar aspect of the finger and then into the hand. She says she was limited in the use of her middle finger due to pain. and she continues to have pain in the ulnar aspect of her middle finger DIP joint. She says she felt relief both from hot & cold water soaks. She also says she got significant relief from acupuncture, which helped her sleep at night. She still has some mild discomfort on the radial aspect of the middle finger, but it is much better since her acupuncture. She also complains of new numbness in her middle finger, primarily the ulnar aspect. She denies any numbness in her other fingers. The pain in the dorsal aspect of the her right wrist appears to have improved since her last visit. She denies any hx of Rheumatoid arthritis. 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 [facility] Medical History (Updated 12/18/24 @ 11:08 by Hesham Dumont) Overweight Hx of screening mammography Annual physical exam Elevated LFTs Vitamin D deficiency Surgical History S/P cholecystectomy S/P hysterectomy Hx of colonoscopy Family History Father Mental health disorder Mother Mental health disorder Sister Cardiac rhythm disturbance Brother Heart failure Social History Household Members Other:: , 3 adult children, 13 grandchildren, works at [employer] Housing: House Patient Tobacco Use Status: Never used Tobacco e-Cigarette/Vaping Use: Never Used service: No Current occupational status: employed 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 Normal sensation in the radial aspect of the middle finger. Normal sensation to all other digits Vascular: Cap refill brisk ROM: She can make a fist and extend all her digits She has a fullness over the 4th dorsal compartment tendons, where they pass over the wrist joint, from the radiocarpal joint to the CMC joints Mild tenderness No symptoms or tenderness about base of thumb No pain with resisted finger or wrist extension No tenderness over the middle finger No swelling in the middle finger All joints stable of the middle finger MR/MR wrist RT wo/w con FINDINGS: Triangular fibrocartilage complex: There is a 2 mm perforation through the triangular fibrocartilage disc near the sigmoid notch of radius. Intrinsic wrist ligaments: Scapholunate ligament appears intact. However, there is mildly increased signal lucency sequences in the volar band. Lunotriquetral ligament appears grossly intact. Extensor compartments: There is fluid signal within the tendon sheath of the fourth extensor compartment the distal forearm and more pronounced along the region of the carpal metacarpal joints. There is central stellate fluid signal and thickening of the extensor digitorum tendon for the third digit. There is milder signal changes in the 2nd and 4th digit tendon of the fourth extensor compartment. There is associated hyperenhancement. Extensor compartment are otherwise unremarkable. Flexor tendons: Flexion is intact and unremarkable. Carpal tunnel and Guyon's canal: Carpal tunnel and Guyon's canal structures are unremarkable. Bones/Marrow: There are no marrow replacing lesions. Soft tissues: There is a multiloculated collection that is isointense to skeletal muscle on T1 imaging and hyperintense on fluid status sequences with thin internal septations and very faint enhancement of the septations. It is located volar to the radial styloid, extending proximally from the region of the scaphoid tuberosity, and coursing deep to the radial artery. There is probably very minimal extension dorsal to the distal scaphoid. In greatest dimension, it measures 22 x 8 x 17 mm (CC by AP by transverse). Otherwise, soft tissues are unremarkable. There is no muscle edema, fatty streaking, or atrophy. IMPRESSION: Multiloculated synovial cyst or ganglion situated deep to radial artery and volar to the radial styloid and scaphoid. Tenosynovitis of the fourth extensor compartment with grade 2 strain of the extensor tendon from the third ray and milder changes from extensor tendon of the second and fourth ray. There is a 2 mm perforation through the central disc of triangular fibrocartilage near the sigmoid notch of radius. Age-indeterminate grade 1 sprain of the volar band of scapholunate ligament. Electronically signed by: Hiro Wilcox MD 09/24/2024 Psych Appearance: grossly normal Affect: normal affect Attitude: cooperative Assessment & Plan Assessment & Plan (1) Pain in finger of right hand: Code(s): M79.644 - Pain in right finger(s) Category: Medical (2) Injury of right middle finger: Code(s): S69.91XA - Unspecified injury of right wrist, hand and finger(s), initial encounter Category: Medical (3) Numbness and tingling in right hand: Code(s): R20.0 - Anesthesia of skin; R20.2 - Paresthesia of skin Category: Medical (4) Tenosynovitis of right hand: Code(s): M65.941 - Unspecified synovitis and tenosynovitis, right hand Category: Medical Plan Assessment & Plan: 1. Right middle finger ulnar sided pain Onset ~6 weeks ago, etiology unclear Resolved with Acupuncture 2. Right middle finger ulnar digital nerve distribution numbness Following her injury Normal sensation to all other digits I educated her about this condition I discussed non-operative treatment options I recommend activity modification. She should limit or avoid any activities which worsen her pain She found good relief from hot & cold water soaks as well as acupuncture. She should continue with these if this is giving her relief She can follow up prn 3. Right 4th dorsal compartment extensor tenosynovitis Onset ~1 year ago She may benefit from a tenosynovectomy The patient is not interested in surgery at this time as her symptoms in this area have improved. We did talk about possible risks of tendon rupture with persistent tenosynovitis, and she knows to contact us if she develops more pain in this area She should continue her daily activities as tolerated She will follow up prn, if her symptoms persist or worsen we may consider signing her up for a tenosynovectomy of the 4th dorsal compartment. Scribed for Elke Lechuga MD by Hesham Dumont, spanish medical interpreter, on 12/18/24 at 11:00 AM, EST. Coding Level of Care Code Est Pt Level 4 (00978) Diagnoses Pain in finger of right hand M79.644 Injury of right middle finger S69.91XA Numbness and tingling in right hand R20.0; R20.2 Tenosynovitis of right hand M65.941
[2024-12-18 10:47] VITALS: BMI 39.1
--- OUTSIDE RECORDS SUMMARY | 2024-12-18 11:59 | XMS_ITS | Clinical Summary ---
Author Organization [facility] Address [address] [place] [address] Care Team Providers Care Wireless Network Engineer Name Role Phone Gaby Ruiz MD Primary [...] age to complete this topic Care Teams Wireless Network Engineer Relationship Specialty Start Date End Date Gaby Ruiz MD [address] [place] [address] [phone] PCP - General Internal Medicine 10/29/19
== END 2024-12-18 11:17 | disposition home or self-care (01) ==
LOC: HO.HOS 09:56
PROVIDERS: Visit Provider Orthopaedic Surgery
DX: M79.644 Pain in right finger(s) (principal); S69.91XA Unspecified injury of right wrist, hand and finger(s), initial encounter; R20.0 Anesthesia of skin; R20.2 Paresthesia of skin; M65.941 Unspecified synovitis and tenosynovitis, right hand
CPT/HCPCS: 99213